=== PATIENT | female | born 1950 | race Two or more races ===

== ENCOUNTER 2019-01-30 16:06 | Emergency (ER) | payer OTHER, MEDICAID ==
[2019-01-30 18:42] VITALS: BP 141/67
[2019-01-30] MEDS ORDERED: PHENAZOPYRIDINE HCL 100 MG TAB PO ONE (18:45)
[2019-01-30] MEDS ORDERED: cefTRIAXone SOD 1,000 MG VL IM ONE (18:45)
[2019-01-30] MEDS ORDERED: ACETAMINOPHEN/CODEINE#3 (300/30mg) TAB PO ONE (18:45)
[2019-01-30] MEDS ORDERED: TRIAMCINOLONE 40MG/ML 1ML VIAL IM ONE (18:45)
[2019-01-31] MEDS ORDERED: SIMV-13 PO (18:25)
[2019-01-31] MEDS ORDERED: METF-370 PO (18:25)
[2019-01-31] MEDS ORDERED: DIME50TA PO (18:25)
[2019-01-31] MEDS ORDERED: ASPI-231 PO (18:25)
[2019-01-31] MEDS ORDERED: INSLANTI SC (18:25)
[2019-02-09] MEDS ORDERED: INSREGI SC (12:06)
[2019-02-09] MEDS ORDERED: INSLANTI SC (12:06)
[2019-02-09] MEDS ORDERED: SEVE800T PO (12:06)
[2019-02-09] MEDS ORDERED: POTA10TA79 PO (12:06)
== END 2019-01-30 19:06 | disposition home or self-care (01) ==
LOC: ER 16:09
DX: N39.0 Urinary tract infection, site not specified (principal); M19.90 Unspecified osteoarthritis, unspecified site; B02.9 Zoster without complications; E11.9 Type 2 diabetes mellitus without complications; E78.5 Hyperlipidemia, unspecified
CPT/HCPCS: 72040; 82962; 96372; 99283; J0696; J3301